=== PATIENT | male | born 1950 | race Caucasian/White ===

== ENCOUNTER 2016-12-10 05:57 | Day surgery (SDC) | payer BC ==
[~2016-12-10] VITALS: Ht 180.3 cm; Wt 77.1 kg
[2016-12-10] VITALS (11 sets, daily range): BP systolic 107–121; BP diastolic 58–77
[~2016-12-10 05:57] MED LIST: ATORVASTATIN CA20 MG ORAL; LISINOPRIL20 MG ORAL
[2016-12-10] MEDS ORDERED: ACYCLOVIR400 MG ORAL (06:26)
--- NOTE | 2016-12-10 07:10 | Pre-Procedure Note/Attestation ---
Pre-Procedure Note/Attestation Complete Prior to Procedure Procedure Narrative: laparoscopic cholecystectomy Indications for Procedure Pre-Operative Diagnosis: symptomatic cholelithiasis Attestation I attest that I discussed the nature of the procedure; its benefits; risks and complications; and alternatives (and the risks and benefits of such alternatives ), prior to the procedure, with the patient (or the patient's legal sales and merchandising representative). I attest that, if there was a reasonable possibility of needing a blood transfusion, the patient (or the patient's legal sales and merchandising representative) was given the [facility] standardized written summary, pursuant to the [place] Blood Safety Act ([place] Health and Safety Code # 1645, as amended). I attest that I re-evaluated the patient just prior to the surgery and that there has been no change in the patient's H&P, except as documented below: Choco Wells Dec 10, 2016 07:10
[2016-12-10] MEDS ORDERED: Bupivacaine 0.25% Inj 30ml INJ ONE (07:14)
[2016-12-10] MEDS ORDERED: Bupivacaine w/Epi 0.5% 30ml Vial INJ ONE ×2 (07:14→08:27)
[2016-12-10] MEDS ORDERED: Iothalamate Meglumine 60% 30ML INJ ONE (07:14)
[2016-12-10] MEDS ORDERED: ceFAZolin sod 2 GM in D5W 110 ML IV ONE (07:15)
[2016-12-10] MEDS ORDERED: Metoclopramide 10mg/2ml Inj IVP PRN (07:30)
[2016-12-10] MEDS ORDERED: fentaNYL 100 mcg/2 mL IV PRN (07:30)
[2016-12-10] MEDS ORDERED: Meperidine 25mg/0.5ml Inj IV PRN (07:30)
[2016-12-10] MEDS ORDERED: NS Irrig 1000ml IRRIG ONE (08:11)
[2016-12-10] MEDS ORDERED: Tylenol #3 tab (300mg/30mg) ORAL PRN (08:45)
[2016-12-10] MEDS ORDERED: HYDROmorphone 1mg/ml Carpuject SUBQ PRN (08:45)
[2016-12-10] MEDS ORDERED: Norco 5mg/325mg tab ORAL PRN (08:45)
--- NOTE | 2016-12-10 08:48 | Brief Operative Note ---
Immediate Post Operative Note Operative Note Pre-op Diagnosis: symptomatic cholelithiasis Procedure: lap jennie Findings: consistent w/pre-op dx studies Surgeon: dony Additional Surgeons: melba Anesthesiologist: norma Anesthesia: general Specimen: yes - gallbladder Complications: none Condition: stable Fluids: see records Estimated Blood Loss: minimal Drains: none Implant(s) used?: No Choco Wells Dec 10, 2016 08:48
--- NOTE | 2016-12-10 08:51 | Immediate Post-Op Evaluation ---
Immediate Post-Op Evalulation Immediate Post-Op Evalulation Procedure: Lap Enriqueta Date of Evaluation: Dec 10, 2016 Time of Evaluation: 08:45 IV Fluids: 800 Estimated Blood Loss: 5 Blood Pressure Systolic: 116 Blood Pressure Diastolic: 65 Pulse Rate: 70 Respiratory Rate: 14 O2 Sat by Pulse Oximetry: 100 Temperature (Fahrenheit): 97.4 Nausea: No Vomiting: No Complications none Patient Status: awake, reacts, patent Hydration Status: adequate Drug: ancef Given Within 1 Hr of Incision: Yes Time Given: 07:45 CORTES BAKER CRNA Dec 10, 2016 08:51
--- NOTE | 2016-12-10 08:53 | Anethesia Preoperative Eval ---
Anesthesia Pre-op PMH/ROS General Date of Evaluation: Dec 10, 2016 Time of Evaluation: 07:30 Anesthesiologist: jane ASA Score: ASA 2 Mallampati Score Class I : Soft palate, uvula, fauces, pillars visible Class II: Soft palate, uvula, fauces visible Class III: Soft palate, base of uvula visible Class IV: Only hard plate visible Mallampati Classification: Class II Surgeon: Russell Diagnosis: Gallstones Surgical Procedure: Lap Enriqueta Anesthesia History: none Social History: smoking Family History: no anesthesia problems Allergies: Coded Allergies: No Known Allergies (Unverified , 12/09/16) Medications: see eMAR Past Medical History Cardiovascular: Reports: HTN Pulmonary: Denies: COPD, ELFE[place], asthma, other Gastrointestinal/Genitourinary: Denies: CRI, ESRD, GERD, other Neurologic/Psychiatric: Denies: CVA, TIA, dementia, depression/anxiety, other Endocrine: Denies: DM, hypothyroidism, other, steroids HEENT: Denies: [place] (L), [place] (R), cataract (L), cataract (R), glaucoma, other Hematology/Immune: Denies: DVT, anemia, bleeding disorder, other Musculoskeletal/Integumentary: Denies: DDD, DJD, OA, RA, edema, other PMH Narrative: HTN PSxH Narrative: Hernia Repair Anesthesia Pre-op Phys. Exam Physician Exam Last Vital Signs Date Time Temp Pulse Resp B/P Pulse Ox O2 Delivery O2 Flow Rate FiO2 12/10/16 06:26 98.1 62 18 114/77 97 Room Air Constitutional: NAD Neurologic: CN 2-12 intact Cardiovascular: RRR Respiratory: CTA Gastrointestinal: S/NT/ND Airway Exam Mallampati Classification 3 Mallampati Score: Class II MO: full ROM: full Dentures: no lower, no upper Anesthesia Pre-op A/P Labs wnl Studies Pre-op Studies: EKG - SR Risk Assessment & Plan Plan: general Status Change Before Surgery: No Pre-Antibiotics Drug: ancef Given Within 1 Hr of Incision: Yes Time Given: 07:45 CORTES BAKER CRNA Dec 10, 2016 08:53
--- NOTE | 2016-12-10 08:56 | Operative Note - PDOC ---
Operative Note Operative Note Date of Operation/Procedure: Dec 10, 2016 Pre-op Diagnosis: symptomatic cholelithiasis Procedure: lap jennie Operative Findings: consistent w/pre-op dx studies Surgeon: dony Additional Surgeons: melba Anesthesiologist: norma Anesthesia: general Specimen: yes - gallbladder Complications: none Condition: stable Fluids: see records Estimated Blood Loss: minimal Drains: none Indications for Procedure Mr Love is a 66-year old man/woman who was evaluated in Dr. Wells's clinic with symptoms of biliary colic. There was sonographic evidence of gallstones. Surgery was indicated and recommended. The risks, benefits, alternative and rationale of surgery explained as documented in Dr. Wells's note, including the risk of not operating. Informed consent was obtained in clinic and for a laparoscopic possible open cholecystectomy which we performed today. Description of Procedure The patient was brought to the operating room where a surgical safety checklist was performed. Preoperatively, 2 grams of IV Ancef was administered. General anaesthesia was induced. A garcia catheter was not inserted as the patient was able to void immediately prior to the operation. Arms were not tucked. In supine position, the abdomen was prepped and draped in a sterile fashion. An umbilical midline incision was made and carried down to the fascia which was divided exposing the peritoneal cavity. An open technique was used to enter the peritoneal cavity with a Toscano used to establish our pneumoperitoneum. The laparoscope was inserted into the abdomen under direct vision. Subsequently the following ports were inserted under direct visualization in the typical fashion: a 12 mm epigastric port and two 5 mm ports along the right costal margin. The peritoneal cavity was inspected and no abnormalities found). The patient was placed in reverse Trendelenburg position with the right side up. Omental attachments to the gallbladder were gently swept away until an atraumatic grasper could be used to retract the fundus of the gallbladder superiorly over the dome of the liver.Filmy adhesions between the gallbladder and omentum were also lysed sharply. The infundibulum was identified and subsequently retracted laterally towards the right lower quadrant using another grasper. This maneuver exposed Calots triangle. The peritoneum overlying the gallbladder infundibulum was incised with electrocautery anteriorly. Then the posterior peritoneum was dissected. The triangle was dissected to expose anatomy. Once these structures were carefully identified, the cystic artery was divided first. Then further dissection of the triangle was completed. Once it was determined that the only structure remaining, entering the gall bladder was the cystic duct, it was doubly clipped and divided. The electrocautery was then used to separate the peritoneal attachments between the gallbladder and its bed in the liver. The gallbladder fossa and cystic artery were inspected to ensure no bleeding. Hemostasis was achieved with electrocautery. There was not leakage of bile from the cystic duct stump. The gallbladder, once freed, was placed in an endoscopic retrieval bag and easily removed from the abdomen through the umbilical port. The specimen was sent to pathology. The fascia at the supra-umbilical and epigastric ports were re-approximated using the 0 Vicryl sutures in a [id number] fashion. All incisions were closed using 4-0 monocryl sutures in an subcuticular fashion. The operative field was cleaned and dried. Steri-strips/dressings were applied. There were no intraoperative complications and estimated blood loss was minimal. All instrument and sponge counts were correct. A surgical de- briefing was performed. The patient was extubated and transferred to the PACU in stable condition Choco Wells Dec 10, 2016 08:56
[2016-12-10] MEDS ORDERED: ePHEDrine 50mg/ml Inj ONE (09:30)
[2016-12-10] MEDS ORDERED: Metoclopramide 10mg/2ml Inj ONE (09:30)
[2016-12-10] MEDS ORDERED: Sterile Water Irrig 1000ml IRRIG ONE (09:30)
[2016-12-10] MEDS ORDERED: Ketorolac 30mg Inj ONE (09:30)
[2016-12-10] MEDS ORDERED: LR 1000ml ONE (09:30)
[2016-12-10] MEDS ORDERED: Glycopyrrolate 0.2mg/ml 1ml Vial ONE (09:30)
[2016-12-10] MEDS ORDERED: fentaNYL 100 mcg/2 mL IV ONE (09:30)
[2016-12-10] MEDS ORDERED: NS Irrig 1000ml ONE (09:30)
[2016-12-10] MEDS ORDERED: Propofol 10mg/ml 20ml IV ONE (09:30)
[2016-12-10] MEDS ORDERED: Nimbex 2mg/ml Inj 10ML IVP ONE (09:30)
[2016-12-10] MEDS ORDERED: Midazolam 2mg/2ml Inj ONE (09:30)
[2016-12-10] MEDS ORDERED: Lidocaine 1% MPF 10mg/ml 5ml ONE (09:30)
--- NOTE | 2016-12-10 10:15 | 48 Hour Post Anesthesia Eval ---
Post Anesthesia Evaluation Procedure: Lap Enriqueta Date of Evaluation: Dec 10, 2016 Time of Evaluation: 10:15 Blood Pressure Systolic: 120 0: 72 Pulse Rate: 70 Respiratory Rate: 14 O2 Sat by Pulse Oximetry: 100 Airway: patent Nausea: No Vomiting: No Hydration Status: adequate Cardiopulmonary Status: stable Mental Status/LOC: patient returned to baseline CORTES BAKER CRNA Dec 10, 2016 10:15
== END 2016-12-10 10:10 | disposition home or self-care (01) ==
LOC: SUR 05:57
DX: K80.10 Calculus of gallbladder with chronic cholecystitis without obstruction (principal); I10 Essential (primary) hypertension; K57.30 Diverticulosis of large intestine without perforation or abscess without bleeding; B00.9 Herpesviral infection, unspecified; Z87.891 Personal history of nicotine dependence; Z79.82 Long term (current) use of aspirin; Z79.899 Other long term (current) drug therapy
CPT/HCPCS: 47562; J0690; J1885; J2250; J2405; J2704; J2765; J3010; J7120; 94003; 94150